=== PATIENT | female | born 1980 | race Two or more races ===

== ENCOUNTER 2020-05-28 05:47 | Day surgery (SDC) | payer OTHER ==
[~2020-05-28 05:47] MED LIST: DOLOGESIC-DF 51 EACH PO; SPIRIVA RESPIMAT4 GM IH; VITAL-D RX TAB1 EACH PO; ZANAFLEX4 M1 PO; ZOFRAN8 MG PO
== END 2020-05-28 12:45 | disposition home or self-care (01) ==
LOC: CIR.AMB 05:47
PROVIDERS: ATTEND Otolaryngology Otology & Neurotology
DX: H80.01 Otosclerosis involving oval window, nonobliterative, right ear (principal); Z20.828 Contact with and (suspected) exposure to other viral communicable diseases